=== PATIENT | female | born 1975 | race Two or more races ===

== ENCOUNTER 2023-01-13 09:15 | Emergency (ER) | payer OTHER ==
[~2023-01-13] VITALS: Ht 165.1 cm; Wt 98.9 kg
[2023-01-13] MEDS ORDERED: DICLOFENAC SODI75 MG (10:04)
[2023-01-13] MEDS ORDERED: TIZANIDINE HCL4 MG (10:04)
[2023-01-13] MEDS ORDERED: AZELASTINE137 MCG/0. (10:05)
[2023-01-13] MEDS ORDERED: LEVOFLOXACIN500 MG (10:05)
[2023-01-13] MEDS ORDERED: BREO ELLIPTA 21 EACH (10:05)
== END 2023-01-13 11:18 | disposition home or self-care (01) ==
LOC: ER 09:15
DX: M54.89 Other dorsalgia (principal)